=== PATIENT | female | born 1970 | race American Indian/Alaskan Native ===

== ENCOUNTER 2016-07-20 19:21 | Emergency (ER) | payer OTHER ==
[2016-07-20 21:46] LABS: Basophils % (Auto) 0.7 % (0.0-1.8); Eosinophils % (Auto) 1.7 % (0.0-4.3); Hematocrit 39.2 % (30.3-42.9); Hemoglobin 12.9 gm/dl (10.1-14.3); Mean Corpuscular HGB Conc 33 % (30-34); Mean Corpuscular Hemoglobin 28 pg (28-32); Mean Corpuscular Volume 86 fl (79-97); Platelet Count 249 K/mm3 (140-440); Red Blood Count 4.57 M/mm3 (3.65-5.03); Red Cell Distribution Width 14.5 % (13.2-15.2); White Blood Count 11.5 K/mm3 (4.5-11.0)
[2016-07-20 21:57] LABS: Anion Gap 17 mmol/L; BUN/Creatinine Ratio 18.57; Blood Urea Nitrogen 13 mg/dL (7-17); Carbon Dioxide 28 mmol/L (22-30); Chloride 99.1 mmol/L (98-107); Glucose 92 mg/dL (65-100); Potassium 3.6 mmol/L (3.6-5.0); Sodium 140 mmol/L (137-145)
[2016-07-20 23:54] VITALS: BP 124/56
--- NOTE | 2016-07-20 23:56 | Emergency Department Report ---
ED Shortness of Breath HPI - General Chief Complaint: Dyspnea/Respdistress Stated Complaint: SWELLING IN FEET AND LEGS, SHORTNESS OF BREATH Time Seen by Provider: 07/20/16 23:54 Source: patient Mode of arrival: Ambulatory Limitations: No Limitations - History of Present Illness Initial Comments: This is a pleasant 45-year-old female complaining of 2 or 3 days of increased pedal edema. She has noticed today some increased dyspnea as well. She is concerned because her father of congestive heart failure. Patient indicates that she does have hypertension and is on on amlodipine as well as Maxide for her leg pressure. She took an extra Maxide today due to the increased fluid. She reports that she has had in the past Lasix prescription that she has used when necessary for pedal edema as well. She has not done this for greater than 6 months spell. Denies any chest pain today. Reports normal urination. Denies any other significant complaints. MD Complaint: shortness of breath Onset/Timin -: days(s) Quality: other Consistency: constant Improves With: rest Worsens With: exertion Treatments Prior to Arrival: none - Related Data Previous Rx's Medication Instructions Recorded Last Taken Type Furosemide [Lasix] 20 mg PO QDAY #30 tablet 07/21/16 Unknown Rx Potassium Chloride [K-Dur] 20 meq PO QDAY #30 tablet 07/21/16 Unknown Rx Allergies Allergy/AdvReac Type Severity Reaction Status Date / Time No Known Allergies Allergy Verified 07/20/16 19:35 ED Review of Systems ROS: Stated complaint: SWELLING IN FEET AND LEGS, SHORTNESS OF BREATH Other details as noted in HPI Constitutional: denies: chills, fever Eyes: denies: eye pain, eye discharge, vision change ENT: denies: ear pain, throat pain Respiratory: SOB with exertion. denies: cough, wheezing Cardiovascular: denies: chest pain, palpitations Endocrine: no symptoms reported Gastrointestinal: denies: abdominal pain, nausea, diarrhea Genitourinary: denies: urgency, dysuria, discharge Musculoskeletal: other (pedal edema). denies: back pain, joint swelling, arthralgia Skin: denies: rash, lesions Neurological: denies: headache, weakness, paresthesias Psychiatric: denies: anxiety, depression Hematological/Lymphatic: denies: easy bleeding, easy bruising ED Past Medical Hx - Past Medical History Previous Medical History?: Yes Hx Hypertension: Yes Hx Arthritis: Yes Hx Asthma: Yes - Surgical History Past Surgical History?: No - Social History Smoking Status: Never Smoker Substance Use Type: None - Medications Home Medications: Home Medications Medication Instructions Recorded Confirmed Last Taken Type Furosemide [Lasix] 20 mg PO QDAY #30 tablet 07/21/16 Unknown Rx Potassium Chloride [K-Dur] 20 meq PO QDAY #30 tablet 07/21/16 Unknown Rx ED Physical Exam - General Limitations: No Limitations General appearance: alert, in no apparent distress - Head Head exam: Present: atraumatic, normocephalic - Eye Eye exam: Present: normal appearance - ENT ENT exam: Present: mucous membranes moist - Neck Neck exam: Present: normal inspection - Respiratory Respiratory exam: Present: normal lung sounds bilaterally (good air movement). Absent: respiratory distress - Cardiovascular Cardiovascular Exam: Present: regular rate, normal rhythm. Absent: systolic murmur, diastolic murmur, rubs, gallop - GI/Abdominal GI/Abdominal exam: Present: soft, normal bowel sounds - Extremities Exam Extremities exam: Present: pedal edema (trace with good distal pedal pulses bilat.). Absent: calf tenderness - Back Exam Back exam: Present: normal inspection - Neurological Exam Neurological exam: Present: alert, oriented X3 - Psychiatric Psychiatric exam: Present: normal affect, normal mood - Skin Skin exam: Present: warm, dry, intact, normal color. Absent: rash ED Course Vital Signs 07/20/16 07/20/16 19:34 23:53 Temperature 97.5 F L Pulse Rate 95 H 88 Respiratory 18 18 Rate Blood Pressure 144/85 Blood Pressure 124/56 [Left] O2 Sat by Pulse 99 99 Oximetry - Reevaluation(s) Reevaluation #1: 07/21/16 00:16 Vital signs completely normal here. Chest x-ray is unremarkable. With normal cardiac silhouette being noted as well. ECG is equally unremarkable. Lab studies demonstrated excellent creatinine. Have a low suspicion for pulmonary embolism. Patient is PERC negative. I do have a suspicion of mild CHF is likely etiology given her symptomatology. She doesn't demonstrate classic findings on labs or x-ray though. For now we will treat her symptomatically. I will institute Lasix. Her blood pressures a little bit on the low side today. I did encourage her to stop the Maxzide and switched to Lasix. If the Lasix is not adequate for blood pressure control and she can go back onto the Maxzide. I did encourage her as well as follow-up for echocardiogram and further diagnostic studies through her physician. She is agreeable with this plan. ED Medical Decision Making - Lab Data Result diagrams: 07/20/16 21:29 07/20/16 21:29 - EKG Data -: EKG Interpreted by Me EKG shows normal: sinus rhythm, axis, intervals, QRS complexes, ST-T waves Rate: normal - EKG Data Interpretation: normal EKG - Radiology Data interpreted by me: No infiltrate no vascular congestion normal cardiac silhouette. Critical care attestation.: If time is entered above; I have spent that time in minutes in the direct care of this critically ill patient, excluding procedure time. ED Disposition Clinical Impression: Pedal edema Dyspnea Qualifiers: Dyspnea type: dyspnea on exertion Qualified Code(s): R06.09 - Other forms of dyspnea Disposition: DISCHARGED TO HOME OR SELFCARE Is pt being admited?: No Does the pt Need Aspirin: No Condition: Stable Instructions: Leg Edema (ED) Additional Instructions: I am starting you on Lasix 20 mg every morning. Make sure you take potassium every time you take Lasix. If one tablet of Lasix isn't enough to keep your fluid collection down then consider taking 2 tablets or 40 mg daily. Again, make sure to take extra potassium if this is the case. If her blood pressure continues to be elevated despite extremely. Then continue with your Maxide. I would like you to continue with her amlodipine regardless. Follow-up with your primary doctor to arrange for echocardiogram. Prescriptions: Furosemide [Lasix] 20 mg PO QDAY #30 tablet Potassium Chloride [K-Dur] 20 meq PO QDAY #30 tablet Referrals: SHI PRINCE MD [Primary Care Provider] - 3-5 Days Forms: Work/School Release Form(ED) Time of Disposition: 00:09
--- NOTE | 2016-07-21 09:40 | XRay Report ---
ROUTINE CHEST, TWO VIEWS: PA and lateral views demonstrate the heart and mediastinal contour to be of normal size and shape. The lungs are clear and fully expanded and the soft tissues and bony structures are normal. IMPRESSION: Normal study.
== END 2016-07-21 00:28 | disposition home or self-care (01) ==
LOC: ED 19:21
DX: R60.9 Edema, unspecified (principal); R06.09 Other forms of dyspnea; I10 Essential (primary) hypertension; M19.90 Unspecified osteoarthritis, unspecified site; J45.909 Unspecified asthma, uncomplicated
CPT/HCPCS: 36415; 71020; 80048; 84484; 84703; 85025; 93005; 93010; 99284

== ENCOUNTER 2017-11-02 19:26 | Emergency (ER) | payer OTHER ==
[2017-11-02] MEDS ORDERED: TORADOL IM ONE (22:51)
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
[2017-11-02 23:11] VITALS: BP 145/92
== END 2017-11-02 23:11 | disposition home or self-care (01) ==
LOC: ED 19:26
DX: S46.912A Strain of unspecified muscle, fascia and tendon at shoulder and upper arm level, left arm, initial encounter (principal); S46.911A Strain of unspecified muscle, fascia and tendon at shoulder and upper arm level, right arm, initial encounter; M62.830 Muscle spasm of back; V87.7XXA Person injured in collision between other specified motor vehicles (traffic), initial encounter; I10 Essential (primary) hypertension; M19.90 Unspecified osteoarthritis, unspecified site; J45.909 Unspecified asthma, uncomplicated; Z87.891 Personal history of nicotine dependence; Y93.89 Activity, other specified; Y92.89 Other specified places as the place of occurrence of the external cause; Y99.8 Other external cause status
CPT/HCPCS: 96372; 99282; J1885